=== PATIENT | male | born 1960 | race Caucasian/White ===

== ENCOUNTER → 2017-01-14 | Outpatient (CLI) | payer MEDICARE | LOC: HEART 5 07:50 | DX: I25.10 Atherosclerotic heart disease of native coronary artery without angina pectoris (principal); R00.1 Bradycardia, unspecified | CPT/HCPCS: 78452; A9502; J2785 ==

== ENCOUNTER 2017-03-15 10:48 | Emergency (ER) | payer MEDICARE ==
[2017-03-15 12:35] LABS: HEMOGLOBIN 15.8 gm/dl (14.0-17.5); RED BLOOD COUNT 4.9 M/UL (4.20-5.50); WHITE BLOOD COUNT 11.1 K/UL (4.5-11.0)
[2017-03-15 12:59] LABS: BUN/CREATININE RATIO 12 (0-10)
== END 2017-03-15 15:10 | disposition home or self-care (01) ==
LOC: ER1 10:48
PROVIDERS: Specialist/Technologist Athletic Trainer
DX: J20.9 Acute bronchitis, unspecified (principal); E87.6 Hypokalemia; I25.10 Atherosclerotic heart disease of native coronary artery without angina pectoris; I10 Essential (primary) hypertension; F17.200 Nicotine dependence, unspecified, uncomplicated; Z95.5 Presence of coronary angioplasty implant and graft; Z79.02 Long term (current) use of antithrombotics/antiplatelets
CPT/HCPCS: 36415; 71020; 80053; 82550; 82553; 82803; 83874; 84436; 84443; 84484; 85025; 93005; 99285

== ENCOUNTER → 2021-03-14 | Outpatient (CLI) | payer OTHER ==
[~2021-03-14] MED LIST: ALLEGRA ALLERG180 MG PO; AMBIEN10 MG PO; ATORVASTATIN CA40 MG PO; CELEXA20 MG PO; ELIQUIS5 M1 PO; ELIQUIS5 MG PO; FAMOTIDINE40 MG PO; FLONASE 0.05% N16 GM; GABAPENTIN300 MG PO; LEVAQUIN500 MG PO; LEVOCETIRIZINE D5 MG PO; LISINOPRIL-HCT1 EAC1 PO; LOPRESSOR 25 MG25 MG PO; MULTIVITAMINS1 EAC1 PO; NORVASC10 MG PO; PLAVIX 75 MG TA75 MG PO; POTASSIUM99 M1 PO; REQUIP XL2 MG PO; SINGULAIR10 MG PO; TOPAMAX100 MG PO; TYLENOL W/CODEIN1 E1 PO; ULTRAM50 MG PO; VITAMIN D21250 MCG PO; ZANTAC300 MG PO
== END ==
LOC: EXRD 11:00
DX: M25.571 Pain in right ankle and joints of right foot (principal)
CPT/HCPCS: 73630

== ENCOUNTER → 2021-08-08 | Outpatient (CLI) | payer OTHER | LOC: HEART 5 08:06 | DX: I25.10 Atherosclerotic heart disease of native coronary artery without angina pectoris (principal); R53.83 Other fatigue; R06.02 Shortness of breath; Z98.61 Coronary angioplasty status; I51.7 Cardiomegaly; R94.39 Abnormal result of other cardiovascular function study | CPT/HCPCS: 78452; 93306; A9502; J2785 ==

== ENCOUNTER → 2021-08-29 | Outpatient (CLI) | payer OTHER ==
[~2021-08-29] MED LIST changes: +ANORO ELLIPTA1 EACH INH; +DITROPAN XL5 MG PO; +FENOFIBRATE160 MG PO; +ISOSORBIDE MONO30 MG PO; +METFORMIN HCL500 MG PO; +MULTI-VITAMIN1 EACH PO; +SOTALOL80 MG PO; +VITAMIN D31250 MCG PO; +ZANAFLEX4 M1 PO
[2021-08-29 07:22] LABS: HEMOGLOBIN 16.9 gm/dl (14.0-17.5); RED BLOOD COUNT 5.27 M/UL (4.20-5.50); WHITE BLOOD COUNT 7.6 K/UL (4.5-11.0)
[2021-08-29 07:39] LABS: BUN/CREATININE RATIO 19 (0-10)
== END ==
LOC: CATH 06:37
PROVIDERS: Internal Medicine Cardiovascular Disease
DX: I48.0 Paroxysmal atrial fibrillation (principal); I48.92 Unspecified atrial flutter; I25.5 Ischemic cardiomyopathy; I25.10 Atherosclerotic heart disease of native coronary artery without angina pectoris; I10 Essential (primary) hypertension; I47.2 Ventricular tachycardia; I25.2 Old myocardial infarction; I49.5 Sick sinus syndrome; E78.5 Hyperlipidemia, unspecified; Z95.810 Presence of automatic (implantable) cardiac defibrillator; K21.9 Gastro-esophageal reflux disease without esophagitis; F43.23 Adjustment disorder with mixed anxiety and depressed mood; M19.90 Unspecified osteoarthritis, unspecified site; F17.210 Nicotine dependence, cigarettes, uncomplicated; J44.9 Chronic obstructive pulmonary disease, unspecified; G47.33 Obstructive sleep apnea (adult) (pediatric); G25.81 Restless legs syndrome; Z88.6 Allergy status to analgesic agent; Z79.01 Long term (current) use of anticoagulants; Z79.899 Other long term (current) drug therapy
CPT/HCPCS: 80048; 82962; 85025; 93005; J1200; J1742; J2250; J2310; J3010

== ENCOUNTER → 2021-10-24 | Day surgery (SDC) | payer OTHER ==
[~2021-10-24] MED LIST changes: +CELEXA 20MG TAB20 MG PO
== END | disposition home or self-care (01) ==
LOC: OR 06:34
DX: Z12.11 Encounter for screening for malignant neoplasm of colon (principal); D12.8 Benign neoplasm of rectum; K64.1 Second degree hemorrhoids; K64.4 Residual hemorrhoidal skin tags; G47.33 Obstructive sleep apnea (adult) (pediatric); Z79.01 Long term (current) use of anticoagulants; I10 Essential (primary) hypertension; E11.9 Type 2 diabetes mellitus without complications; Z95.810 Presence of automatic (implantable) cardiac defibrillator; I48.20 Chronic atrial fibrillation, unspecified; E66.01 Morbid (severe) obesity due to excess calories; D68.9 Coagulation defect, unspecified; Z68.38 Body mass index [BMI] 38.0-38.9, adult; Z20.822 Contact with and (suspected) exposure to COVID-19; Z88.6 Allergy status to analgesic agent; I25.2 Old myocardial infarction
CPT/HCPCS: 82962; J2704; J7040; U0002

== ENCOUNTER 2021-10-30 11:30 | Emergency (ER) | payer OTHER ==
[2021-10-30 15:35] LABS: HEMOGLOBIN 15.5 gm/dl (14.0-17.5); RED BLOOD COUNT 4.68 M/UL (4.20-5.50); WHITE BLOOD COUNT 11.8 K/UL (4.5-11.0)
[2021-10-30 16:02] LABS: BUN/CREATININE RATIO 16 (0-10)
== END 2021-10-30 18:00 | disposition home or self-care (01) ==
LOC: ER1 11:30
PROVIDERS: Physician Assistant
DX: I26.99 Other pulmonary embolism without acute cor pulmonale (principal); I48.91 Unspecified atrial fibrillation; I11.9 Hypertensive heart disease without heart failure; F17.200 Nicotine dependence, unspecified, uncomplicated; E78.5 Hyperlipidemia, unspecified; E11.9 Type 2 diabetes mellitus without complications; J44.9 Chronic obstructive pulmonary disease, unspecified; Z95.5 Presence of coronary angioplasty implant and graft; Z95.0 Presence of cardiac pacemaker; Z88.6 Allergy status to analgesic agent; Z79.01 Long term (current) use of anticoagulants; Z20.822 Contact with and (suspected) exposure to COVID-19
CPT/HCPCS: 71045; 80053; 82550; 82553; 83874; 83880; 84439; 84443; 84484; 85025; 85379; 99285; Q9967; U0002

== ENCOUNTER → 2021-11-21 | Outpatient (CLI) | payer OTHER | LOC: EXRD 10:32 | DX: M25.552 Pain in left hip (principal) | CPT/HCPCS: 73502 ==

== ENCOUNTER → 2022-03-08 | Outpatient (CLI) | payer OTHER | LOC: RAD 06:38 → CT 08:00 | DX: M51.17 Intervertebral disc disorders with radiculopathy, lumbosacral region (principal) | CPT/HCPCS: 72132 ==

== ENCOUNTER → 2022-04-26 | Outpatient (CLI) | payer OTHER ==
[2022-04-26 13:58] LABS: HEMOGLOBIN 16.1 gm/dl (14.0-17.5); RED BLOOD COUNT 4.86 M/UL (4.20-5.50); WHITE BLOOD COUNT 8.5 K/UL (4.5-11.0)
[2022-04-26 14:29] LABS: BUN/CREATININE RATIO 14 (0-10)
[2022-04-27 10:14] LABS: CREATININE, URINE 102.2 mg/dL (Not Estab.)
== END ==
LOC: LAB 13:28
PROVIDERS: Nurse Practitioner Family
DX: Z12.5 Encounter for screening for malignant neoplasm of prostate (principal); E11.9 Type 2 diabetes mellitus without complications; E78.5 Hyperlipidemia, unspecified; R39.15 Urgency of urination; F41.8 Other specified anxiety disorders; E55.9 Vitamin D deficiency, unspecified
CPT/HCPCS: 36415; 80053; 80061; 82043; 82570; 84153; 84439; 84443; 85025